=== PATIENT | female | born 1965 | race Caucasian/White ===

== ENCOUNTER 2020-07-14 09:08 | Emergency (ER) | payer SELFPAY ==
[2020-07-14 09:19] VITALS: BP 142/89
--- NOTE | 2020-07-14 09:50 | ER Document Report ---
HPI - HPI Patient complains to provider of: Toothache Time Seen by Provider: 07/14/20 09:49 Notes: 55-year-old female to the emergency department with complaints of right lower tooth ache that began this morning. She states that she broke this tooth several weeks ago but did not start to hurt until this morning. It radiates to her ear and down into her neck. Denies any fevers or chills. Denies any drooling. Denies any voice change. She took 2 ibuprofen [id number] this morning and an antibiotic that she had at home. She is not exactly sure what the antibiotic was called. She has not seen a dentist in some time. - ROS Systems Reviewed and Negative: Yes All other systems reviewed and negative - CONSTITUTIONAL Constitutional: DENIES: Fever, Chills - EENT EENT: REPORTS: Ear Pain - See HPI. DENIES: Sore Throat Notes: Right lower tooth ache - NEURO Neurology: REPORTS: Headache - See HPI - CARDIOVASCULAR Cardiovascular: DENIES: Chest pain - RESPIRATORY Respiratory: DENIES: Trouble Breathing, Coughing - GASTROINTESTINAL Gastrointestinal: DENIES: Abdominal Pain, Nausea, Patient vomiting, Diarrhea - MUSCULOSKELETAL Musculoskeletal: DENIES: Back Pain, Neck Pain, Swelling - DERM Skin Color: Normal Skin Problems: None Past Medical History - General Information source: Patient - Social History Smoking Status: Current Every Day Smoker Frequency of alcohol use: None Drug Abuse: None Family History: Reviewed & Not Pertinent Vertical Provider Document - CONSTITUTIONAL Agree With Documented VS: Yes Exam Limitations: No Limitations General Appearance: WD/WN - HEENT HEENT: Atraumatic, Normocephalic, PERRLA Notes: Multiple dental caries with poor dentition throughout. Tooth number 30 is broken anteriorly with noted decay. Tender to palpation. There is no evidence for gum abscess or gum erythema. There is no Manuel's angina. Airway is grossly patent. Voice is normal. No drooling - NECK Neck: Normal Inspection, Supple. negative: Lymphadenopathy-Left, Lymphadenopathy-Right - RESPIRATORY Respiratory: Breath Sounds Normal. negative: No Respiratory Distress, Rales, Rhonchi, Wheezing - CARDIOVASCULAR Cardiovascular: Regular Rate, Regular Rhythm, No Murmur - GI/ABDOMEN Gastrointestinal: Abdomen Soft, Abdomen Non-Tender - MUSCULOSKELETAL/EXTREMETIES Musculoskeletal/Extremeties: WILTON HARPER - NEURO Level of Consciousness: Awake, Alert, Appropriate Motor/Sensory: No Motor Deficit, No Sensory Deficit - DERM Integumentary: Warm, No Rash Course - Re-evaluation Re-evalutation: 07/14/20 10:15 Impression: Dental caries, broken tooth, dental pain. Patient with no Manuel's angina. She drove herself here to the emergency department so we will dose with Tylenol and viscous lidocaine here. Will send home with antibiotics, pain medicine, mouthwash. She has been instructed to follow-up with her dentist. She is encouraged to return if any worsening symptoms. Patient agrees with the plan. - Vital Signs Vital signs: Temp Pulse Resp BP Pulse Ox 98.2 F 82 20 142/89 H 98 07/14/20 09:16 07/14/20 09:16 07/14/20 09:16 07/14/20 09:16 07/14/20 09:16 Discharge - Discharge Clinical Impression: Dental caries, Toothache Broken tooth Qualifiers: Encounter type: initial encounter Fracture type: closed Qualified Code(s): S02.5XXA - Fracture of tooth (traumatic), initial encounter for closed fracture Disposition: HOME, SELF-CARE Instructions: Clindamycin ([facility]), [facility], Toothache ([facility]) Additional Instructions: Follow-up with the [facility] without fail. Complete all antibiotics. Return if worsening symptoms such as significant facial swelling, drooling, inability open mouth, fevers. Prescriptions: Acetaminophen with Codeine [Tylenol #3 Tablet] 1 each PO Q4HP PRN #10 tablet PRN Reason: Clindamycin HCl 300 mg PO TID #30 capsule Ibuprofen [Motrin 800 mg Tablet] 800 mg PO Q8H PRN #30 tab PRN Reason: Chlorhexidine Gluconate [Peridex] 15 ml MM QID #420 ml Referrals: [facility] [Provider Group] - Follow up in 3-5 days
[2020-07-14] MEDS ORDERED: LIDOCAINE 2% VISCOUS SOLN 15 ML UDCUP PO ONE (10:11)
[2020-07-14] MEDS ORDERED: ACETAMINOPHEN 325 MG TABLET PO ONE (10:11)
== END 2020-07-14 10:45 | disposition home or self-care (01) ==
LOC: ER 09:08
DX: S02.5XXA Fracture of tooth (traumatic), initial encounter for closed fracture (principal); K08.89 Other specified disorders of teeth and supporting structures; K02.9 Dental caries, unspecified; H92.01 Otalgia, right ear; M54.2 Cervicalgia; R51.9 Headache, unspecified; X58.XXXA Exposure to other specified factors, initial encounter
CPT/HCPCS: 99284; J3490